=== PATIENT | female | born 1965 | race Caucasian/White ===

== ENCOUNTER 2018-12-22 10:03 | Inpatient (IN) | payer OTHER ==
[2018-12-22 10:47] VITALS: BMI 16.7
--- NOTE | 2018-12-22 12:10 | HP ---
CIWA Score Nausea/Vomitin Muscle Tremors: 2 Anxiety: 2 Agitation: 2 Paroxysmal Sweats: 1-Minimal Palms Moist Orientation: 0-Oriented Tacttile Disturbances: 1-Very Mild Itch/Numbness Auditory Disturbances: 1-Very Mild Visual Disturbances: 0-None Headache: 2-Mild CIWA-Ar Total Score: 13 - Admission Criteria OASAS Guidelines: Admission for Medically Managed Detox: Requires at least one of the followin. CIWA greater than 12 2. Seizures within the past 24 hours 3. Delirium tremens within the past 24 hours 4. Hallucinations within the past 24 hours 5. Acute intervention needed for co occurring medical disorder 6. Acute intervention needed for co occurring psychiatric disorder 7. Severe withdrawal that cannot be handled at a lower level of care (continued vomiting, continued diarrhea, abnormal vital signs) requiring intravenous medication and/or fluids 8. Admission ROS S - HPI Chief Complaint: i need help to stop drinking alcohol,cocaine,heroin abused,mmtp 100 mgs/day Allergies/Adverse Reactions: Allergies Allergy/AdvReac Type Severity Reaction Status Date / Time No Known Allergies Allergy Verified 12/22/18 10:33 History of Present Illness: this 53 years old female with alcohol dependence,cocaine dependence,heroin abused,mmtp 100 mgs/day,last medicated today last detox 2017 do not recall facility hiv since 01/31/92 non compliance weight loss hepatitis c treated asthma nicotine dependence 3 packs.requesting patch syncope alcohol related bipolar disorder ambulance with cane for 13 years for balance longest sobriety 2 years celio to go to rehab after detox - Ebola screening Have you traveled outside of the country in the last 21 days: No Have you had contact with anyone from an Ebola affected area: No Do you have a fever: No - Review of Systems Constitutional: Loss of Appetite, Malaise, Night Sweats, Changes in sleep, Unintentional Wgt. Loss EENT: reports: Nose Congestion Respiratory: reports: No Symptoms reported, Other (asthma) Cardiac: reports: No Symptoms Reported GI: reports: Diarrhea, Nausea, Poor Appetite, Indigestion : reports: No Symptoms Reported Musculoskeletal: reports: Back Pain, Muscle Pain Integumentary: reports: Dryness Neuro: reports: Headache, Tremors Endocrine: reports: No Symptoms Reported Hematology: reports: No Symptoms Reported, Other (hiv) Psychiatric: reports: No Sypmtoms Reported, Judgement Intact, Mood/Affect Appropiate, Orientated x3 (bipolar disorder) Other Systems: Reviewed and Negative Patient History - Patient Medical History Hx Anemia: Yes (chronic disease? ) Hx Asthma: Yes (Pt is on MDI) Hx Chronic Obstructive Pulmonary Disease (COPD): No Hx Cancer: No Hx Cardiac Disorders: No Hx Congestive Heart Failure: No Hx Hypertension: No Hx Hypercholesterolemia: No Hx Pacemaker: No HX Cerebrovascular Accident: No Hx Seizures: No Hx Dementia: No Hx Diabetes: No Hx Gastrointestinal Disorders: No Hx Liver Disease: No Hx Genitourinary Disorders: No Hx Sexually Transmitted Disorders: No Hx Renal Disease (ESRD): No Hx Thyroid Disease: No Hx Human Immunodeficiency Virus (HIV): Yes (since 01/31/92) Hx Hepatitis C: Yes (treated) Hx Depression: No Hx Suicide Attempt: No Hx Bipolar Disorder: Yes (on med) Hx Schizophrenia: No Other Medical History: no suicidal,no homicidal,amlance with cane for 13 years - Patient Surgical History Past Surgical History: Yes Other Surgical History: Bilateral inguinal hernia repairs Anesthesia Reaction: No - PPD History Previous Implant?: Yes Documented Results: Positive w/o proof Implanted On Prior R Admission?: No Date: 02/09/14 PPD to be Administered?: No - Reproductive History Patient is a Female of Child Bearing Age (11 -55 yrs old): Yes Last Menstrual Period: 01/29/14 Patient : No - Smoking Cessation Smoking history: Current every day smoker Have you smoked in the past 12 months: Yes Aproximately how many cigarettes per day: 60 Hx Chewing Tobacco Use: No Initiated information on smoking cessation: Yes 'Breaking Loose' booklet given: 12/22/18 - Substance & Tx. History Hx Alcohol Use: Yes Hx Substance Use: Yes Substance Use Type: Alcohol, Cocaine, Heroin Hx Substance Use Treatment: Yes (2018 unknown facility) - Substances abused Heroin Substance route: Injection Frequency: 3-6 times per week Amount used: 6-7 BAGS Age of first use: 9 Date of last use: 12/21/18 Alcohol Substance route: Oral Frequency: Daily Amount used: 2pints of vodka Age of first use: 8 Date of last use: 12/22/18 Cocaine Substance route: Inhalation Frequency: Daily Amount used: 60$ Age of first use: 9 Date of last use: 12/21/18 Family Disease History - Family Disease History Family Disease History: Diabetes: Father (alcohol), Other: Father Admission Physical Exam [facility] - Vital Signs Vital Signs: Vital Signs - 24 hr 12/22/18 10:35 Temperature 98.3 F Pulse Rate 71 Respiratory 16 Rate Blood Pressure 99/61 - Physical General Appearance: Yes: Moderate Distress, Tremorous, Irritable, Sweating, Anxious HEENTM: Yes: Normal ENT Inspection, SATISH, Pharynx Normal Respiratory: Yes: Within Normal Limits, Lungs Clear, Normal Breath Sounds Neck: Yes: Within Normal Limits, Supple, Trachea in good position Breast: Yes: Breast Exam Deferred Cardiology: Yes: Within Normal Limits, Regular Rhythm, Regular Rate, S1, S2 Abdominal: Yes: Within Normal Limits, Normal Bowel Sounds, Non Tender, Flat Genitourinary: Yes: Within Normal Limits Musculoskeletal: Yes: full range of Motion, Back pain, Muscle Pain Extremities: Yes: Tremors Neurological: Yes: director paid media II-XII NML intact, Fully Oriented, Alert, Motor Strength 5/5 Integumentary: Yes: Dry, Track [place] Lymphatic: Yes: Within Normal Limits - Diagnostic (1) Alcohol dependence with uncomplicated withdrawal Current Visit: Yes Status: Acute (2) Asthma Current Visit: No Status: Acute (3) Bipolar disorder Current Visit: No Status: Acute (4) Cocaine dependence Current Visit: No Status: Acute (5) HIV disease Current Visit: No Status: Acute (6) Hepatitis C Current Visit: No Status: Acute (7) Nicotine dependence Current Visit: No Status: Acute (8) Heroin abuse Current Visit: Yes Status: Acute (9) Weight loss Current Visit: Yes Status: Acute (10) Ambulates with cane Current Visit: Yes Status: Acute (11) Dehydration Current Visit: Yes Status: Acute (12) IVDU (intravenous drug user) Current Visit: Yes Status: Acute (13) Methadone maintenance therapy patient Current Visit: Yes Status: Acute Cleared for Admission [facility] - Detox or Rehab [facility] Level of Care: Medically Managed Detox Regimen/Protocol: Librium Breathalyzer - Breathalyzer Breathalyzer: 0 POC Urine test - Test device test lot number: [id number] Expiration date: 04/30/20 - Control test control: Yes - Result Urine Test Results: Negative - NO line present Urine Drug Screen - Test Device Lot number: [id number] Expiration date: 07/30/20 - Control Is test valid?: Yes - Results Drug screen NEGATIVE: No Urine drug screen results: SHADE-Cocaine, MTD-Methadone Inpatient Rehab Admission - Rehab Decision to Admit Inpatient rehab admission?: No
[2018-12-22] MEDS ORDERED: MAGNESIUM CITRATE 300 ML BOTTLE PO PRN (12:32)
[2018-12-22] MEDS ORDERED: ACETAMINOPHEN 325 MG TABLET (FP) PO PRN ×2 (12:32)
[2018-12-22] MEDS ORDERED: chlordiazePOXIDE HCL 10 MG CAPSULE PO PRN (12:32)
[2018-12-22] MEDS ORDERED: IBUPROFEN 400 MG TABLET (FP) PO PRN (12:32)
[2018-12-22] MEDS ORDERED: MAGNESIUM HYDROX 2400MG/30ML ORAL SUSPENSION 30 ML CUP PO PRN (12:32)
[2018-12-22] MEDS ORDERED: hydrOXYzine PAMOATE 25 MG CAPSULE (FP) PO PRN (12:32)
[2018-12-22] MEDS ORDERED: MELATONIN 5 MG TABLETS PO PRN (12:32)
[2018-12-22] MEDS ORDERED: METHOCARBAMOL 500 MG TABLET PO PRN (12:32)
[2018-12-22] MEDS ORDERED: BISMUTH SUBSALICYLATE 524 MG/30 ML UD PO PRN (12:32)
[2018-12-22] MEDS ORDERED: MENTHOL/PHENOL 1 EACH UD MM PRN (12:32)
[2018-12-22] MEDS ORDERED: ALBUTEROL SO4 8 GM HFA INHALER IH PRN (12:35)
[2018-12-22] MEDS: NICOTINE 21 MG/24 HOURS TOPICAL PATCH TD SCH (13:51)
[2018-12-22] MEDS: THIAMINE HCL 100 MG TABLET (FP) PO SCH (22:39)
[2018-12-22] MEDS: chlordiazePOXIDE HCL 25 MG CAPSULE PO SCH (22:39)
[2018-12-22 22:53] LABS: HEMOGLOBIN 14.3 GM/dL (10.7-15.3); MCH 33.3 pg (25.7-33.7); MEAN CELL VOLUME 98.1 fl (80-96); MEAN PLT VOLUME 8.7 fl (7.5-11.1); RBC 4.28 M/mm3 (3.60-5.2); RDW 13.7 % (11.6-15.6); WHITE BLOOD COUNT 3.1 K/mm3 (4.0-10.0)
[2018-12-22 23:15] LABS: ALBUMIN 3.4 g/dl (3.4-5.0); ALK PHOS 126 U/L (45-117); ANION GAP 2 MMOL/L (8-16); BILIRUBIN,TOTAL 0.6 mg/dL (0.2-1); BLOOD UREA NITROGEN 19 mg/dL (7-18); CALCIUM 8.9 mg/dL (8.5-10.1); CHLORIDE 102 mmol/L (98-107); CO2 33 mmol/L (21-32); CREATININE 0.8 mg/dL (0.55-1.3); GLUCOSE,RANDOM 85 mg/dL (74-106); POTASSIUM 4.2 mmol/L (3.5-5.1); SGOT/AST 28 U/L (15-37); SGPT/ALT 25 U/L (13-61); SODIUM 137 mmol/L (136-145); TOT PROT 8.9 g/dl (6.4-8.2)
[2018-12-22 23:26] LABS: PLATELET COUNT 274 K/MM3 (134-434)
[2018-12-23] MEDS ORDERED: METHADONE HCL 40 MG DISPERSABLE TABLET ONE (04:30)
[2018-12-23] MEDS ORDERED: METHADONE HCL 10 MG TABLET ONE (04:30)
[2018-12-23] MEDS: chlordiazePOXIDE HCL 25 MG CAPSULE PO SCH ×2 (05:45→12:36)
[2018-12-23] MEDS: METHADONE 80 MG, METHADONE 20 MG PO SCH (05:45)
[2018-12-23] MEDS ORDERED: METHADONE HCL 10 MG TABLET PO SCH (06:00)
[2018-12-23] MEDS: PRENATAL VITAMINS W/ FOLIC ACID TABLET (FP) PO SCH (10:34)
--- NOTE | 2018-12-23 10:42 | PN ---
S CIWA - CIWA Score Nausea/Vomitin-Mild Nausea/No Vomiting Muscle Tremors: 3 Anxiety: 2 Agitation: 2 Paroxysmal Sweats: 1-Minimal Palms Moist Orientation: 3-Disoriented Date>2 days Tacttile Disturbances: 0-None Auditory Disturbances: 0-None Visual Disturbances: 0-None Headache: 0-None Present CIWA-Ar Total Score: 12 B[facility] Progress Note (SOAP) Subjective: ambulating with cane methadone 100 mg po daily Objective: 12/23/18 10:42 Vital Signs Temperature 96 F L 12/23/18 09:18 Pulse Rate 72 12/23/18 09:18 Respiratory Rate 20 12/23/18 09:18 Blood Pressure 91/61 12/23/18 09:18 O2 Sat by Pulse Oximetry (%) Laboratory Last Values WBC 3.1 K/mm3 (4.0-10.0) L 12/22/18 12:00 RBC 4.28 M/mm3 (3.60-5.2) 12/22/18 12:00 Hgb 14.3 GM/dL (10.7-15.3) 12/22/18 12:00 Hct 42.0 % (32.4-45.2) D 12/22/18 12:00 MCV 98.1 fl (80-96) H 12/22/18 12:00 MCH 33.3 pg (25.7-33.7) 12/22/18 12:00 MCHC 34.0 g/dl (32.0-36.0) 12/22/18 12:00 RDW 13.7 % (11.6-15.6) 12/22/18 12:00 Plt Count 274 K/MM3 (134-434) D 12/22/18 12:00 MPV 8.7 fl (7.5-11.1) 12/22/18 12:00 Sodium 137 mmol/L (136-145) 12/22/18 12:00 Potassium 4.2 mmol/L (3.5-5.1) 12/22/18 12:00 Chloride 102 mmol/L (98-107) 12/22/18 12:00 Carbon Dioxide 33 mmol/L (21-32) H 12/22/18 12:00 Anion Gap 2 MMOL/L (8-16) L 12/22/18 12:00 BUN 19 mg/dL (7-18) H 12/22/18 12:00 Creatinine 0.8 mg/dL (0.55-1.3) 12/22/18 12:00 Creat Clearance w eGFR 75.03 (>60) 12/22/18 12:00 Random Glucose 85 mg/dL (74-106) 12/22/18 12:00 Calcium 8.9 mg/dL (8.5-10.1) 12/22/18 12:00 Total Bilirubin 0.6 mg/dL (0.2-1) 12/22/18 12:00 AST 28 U/L (15-37) 12/22/18 12:00 ALT 25 U/L (13-61) 12/22/18 12:00 Alkaline Phosphatase 126 U/L (45-117) H 12/22/18 12:00 Total Protein 8.9 g/dl (6.4-8.2) H 12/22/18 12:00 Albumin 3.4 g/dl (3.4-5.0) 12/22/18 12:00 RPR Titer Nonreactive (NONREACTIVE) 12/22/18 12:00 lab noted 12/23/18 10:45 ammonia level ordered Assessment: 12/23/18 10:45 alcohol withdrawal sx Plan: continue detox
[2018-12-23] MEDS: NICOTINE 21 MG/24 HOURS TOPICAL PATCH TD SCH (11:04)
[2018-12-23] MEDS: THIAMINE HCL 100 MG TABLET (FP) PO SCH (22:24)
[2018-12-23] MEDS: chlordiazePOXIDE 5 MG CAPSULE PO SCH (22:25)
[2018-12-24] MEDS ORDERED: METHADONE HCL 40 MG DISPERSABLE TABLET ONE (05:34)
[2018-12-24] MEDS ORDERED: METHADONE HCL 10 MG TABLET ONE (05:34)
[2018-12-24] MEDS: METHADONE 80 MG, METHADONE 20 MG PO SCH (05:35)
[2018-12-24] MEDS: chlordiazePOXIDE 5 MG CAPSULE PO SCH ×2 (07:05→13:10)
[2018-12-24] MEDS: NICOTINE 21 MG/24 HOURS TOPICAL PATCH TD SCH (10:47)
[2018-12-24] MEDS: PRENATAL VITAMINS W/ FOLIC ACID TABLET (FP) PO SCH (10:47)
--- NOTE | 2018-12-24 11:07 | PN ---
S CIWA - CIWA Score Nausea/Vomitin-No Nausea/No Vomiting Muscle Tremors: None Anxiety: 1-Mildly Anxious Agitation: 0-Normal Activity Paroxysmal Sweats: No Perspiration Orientation: 0-Oriented Tacttile Disturbances: 0-None Auditory Disturbances: 0-None Visual Disturbances: 0-None Headache: 0-None Present CIWA-Ar Total Score: 1 S Progress Note (SOAP) Subjective: Pt here for alcohol detox- pt states only taking librium prn, on methadone 100mg , pt tired/sleepy this morning O: Vital Signs - 24 hr 12/23/18 12/23/18 12/23/18 13:25 17:57 22:04 Temperature 97 F L 97.7 F 99.0 F Pulse Rate 76 85 83 Respiratory 18 18 18 Rate Blood Pressure 101/62 98/63 110/58 L 12/24/18 12/24/18 12/24/18 00:30 06:30 09:16 Temperature 98.2 F 96.4 F L Pulse Rate 71 78 Respiratory 18 18 18 Rate Blood Pressure 99/57 L 98/55 L Laboratory Tests 12/22/18 12/22/18 12/22/18 12:00 12:00 12:00 WBC 3.1 L RBC 4.28 Hgb 14.3 Hct 42.0 D MCV 98.1 H MCH 33.3 MCHC 34.0 RDW 13.7 Plt Count 274 D MPV 8.7 Sodium 137 Potassium 4.2 Chloride 102 Carbon Dioxide 33 H Anion Gap 2 L BUN 19 H Creatinine 0.8 Creat Clearance w eGFR 75.03 Random Glucose 85 Calcium 8.9 Total Bilirubin 0.6 AST 28 ALT 25 Alkaline Phosphatase 126 H Ammonia Total Protein 8.9 H Albumin 3.4 RPR Titer Nonreactive 12/24/18 06:45 WBC RBC Hgb Hct MCV MCH MCHC RDW Plt Count MPV Sodium Potassium Chloride Carbon Dioxide Anion Gap BUN Creatinine Creat Clearance w eGFR Random Glucose Calcium Total Bilirubin AST ALT Alkaline Phosphatase Ammonia 63.50 H Total Protein Albumin RPR Titer a/p: on MAT methadone 100mg/day continue librium detox protocol- prn librium as needed as pt is tired this morning
[2018-12-24] MEDS: MAG HYDROX/AL HYDROX/SIMETH 30 ML UNIT-DOSE CUP PO PRN ×2 (11:50→19:24)
[2018-12-24] MEDS: HYDROCORTISONE 2.5% TOPICAL CREAM 30 GM TUBE TP SCH ×2 (14:51→21:26)
[2018-12-24] MEDS ORDERED: chlordiazePOXIDE 5 MG CAPSULE PO PRN (21:00)
[2018-12-24] MEDS ORDERED: chlordiazePOXIDE HCL 10 MG CAPSULE PO PRN (21:00)
[2018-12-24] MEDS: LACTULOSE 20 GM/30 ML UDC (FOR ORAL USE ONLY) PO SCH (21:25)
[2018-12-24] MEDS: chlordiazePOXIDE HCL 10 MG CAPSULE PO SCH (21:25)
[2018-12-24] MEDS: THIAMINE HCL 100 MG TABLET (FP) PO SCH (21:26)
--- NOTE | 2018-12-25 02:29 | PN ---
[facility] Progress Note Note: Laboratory Last Values WBC 3.1 K/mm3 (4.0-10.0) L 12/22/18 12:00 RBC 4.28 M/mm3 (3.60-5.2) 12/22/18 12:00 Hgb 14.3 GM/dL (10.7-15.3) 12/22/18 12:00 Hct 42.0 % (32.4-45.2) D 12/22/18 12:00 MCV 98.1 fl (80-96) H 12/22/18 12:00 MCH 33.3 pg (25.7-33.7) 12/22/18 12:00 MCHC 34.0 g/dl (32.0-36.0) 12/22/18 12:00 RDW 13.7 % (11.6-15.6) 12/22/18 12:00 Plt Count 274 K/MM3 (134-434) D 12/22/18 12:00 MPV 8.7 fl (7.5-11.1) 12/22/18 12:00 Sodium 137 mmol/L (136-145) 12/22/18 12:00 Potassium 4.2 mmol/L (3.5-5.1) 12/22/18 12:00 Chloride 102 mmol/L (98-107) 12/22/18 12:00 Carbon Dioxide 33 mmol/L (21-32) H 12/22/18 12:00 Anion Gap 2 MMOL/L (8-16) L 12/22/18 12:00 BUN 19 mg/dL (7-18) H 12/22/18 12:00 Creatinine 0.8 mg/dL (0.55-1.3) 12/22/18 12:00 Creat Clearance w eGFR 75.03 (>60) 12/22/18 12:00 Random Glucose 85 mg/dL (74-106) 12/22/18 12:00 Calcium 8.9 mg/dL (8.5-10.1) 12/22/18 12:00 Total Bilirubin 0.6 mg/dL (0.2-1) 12/22/18 12:00 AST 28 U/L (15-37) 12/22/18 12:00 ALT 25 U/L (13-61) 12/22/18 12:00 Alkaline Phosphatase 126 U/L (45-117) H 12/22/18 12:00 Ammonia 63.50 umol/L (11-32) H 12/24/18 06:45 Total Protein 8.9 g/dl (6.4-8.2) H 12/22/18 12:00 Albumin 3.4 g/dl (3.4-5.0) 12/22/18 12:00 POC Urine HCG, Qual Negative 12/22/18 10:26 RPR Titer Nonreactive (NONREACTIVE) 12/22/18 12:00 Elevated serum ammonia level. Started on Lactulose
[2018-12-25] MEDS ORDERED: METHADONE HCL 10 MG TABLET ONE (04:49)
[2018-12-25] MEDS ORDERED: METHADONE HCL 40 MG DISPERSABLE TABLET ONE (04:49)
[2018-12-25] MEDS: METHADONE 80 MG, METHADONE 20 MG PO SCH (06:02)
[2018-12-25] MEDS: LACTULOSE 20 GM/30 ML UDC (FOR ORAL USE ONLY) PO SCH ×3 (06:03→22:35)
[2018-12-25] MEDS: chlordiazePOXIDE HCL 10 MG CAPSULE PO SCH ×4 (06:03→22:36)
[2018-12-25] MEDS ORDERED: COLLOIDAL OATMEAL 1 BAR EACH TP PRN (10:17)
[2018-12-25] MEDS: PRENATAL VITAMINS W/ FOLIC ACID TABLET (FP) PO SCH (11:15)
[2018-12-25] MEDS: AMMONIUM LACTATE 12% LOTION 225 GM BOTTLE TP SCH ×2 (11:15→22:34)
[2018-12-25] MEDS: HYDROCORTISONE 2.5% TOPICAL CREAM 30 GM TUBE TP SCH ×2 (11:15→22:33)
[2018-12-25] MEDS: NICOTINE 21 MG/24 HOURS TOPICAL PATCH TD SCH (11:16)
[2018-12-25] MEDS: MAG HYDROX/AL HYDROX/SIMETH 30 ML UNIT-DOSE CUP PO PRN (11:16)
--- NOTE | 2018-12-25 16:23 | PN ---
S CIWA - CIWA Score Nausea/Vomitin-No Nausea/No Vomiting Muscle Tremors: None Anxiety: 3 Agitation: 1-Slight > Activity Paroxysmal Sweats: No Perspiration Orientation: 0-Oriented Tacttile Disturbances: 2-Mild Itch/Numbness/Burn Auditory Disturbances: 3-Moderate Harsh/Frighten Visual Disturbances: 0-None Headache: 0-None Present CIWA-Ar Total Score: 9 BHS Progress Note (SOAP) Subjective: Anxious, Body Aches.. Objective: PATIENT A & O X 2 (UNCERTAIN ABOUT CURRENT DAY / DATE). PATIENT OBSERVED AMBULATING ON UNIT UNASSISTED. IN NO ACUTE DISTRESS. 12/25/18 16:24 Vital Signs Temperature 98.4 F 12/25/18 14:20 Pulse Rate 66 12/25/18 14:20 Respiratory Rate 16 12/25/18 14:20 Blood Pressure 98/66 12/25/18 14:20 O2 Sat by Pulse Oximetry (%) Laboratory Tests 12/22/18 12/22/18 12/22/18 10:26 12:00 12:00 WBC 3.1 L RBC 4.28 Hgb 14.3 Hct 42.0 D MCV 98.1 H MCH 33.3 MCHC 34.0 RDW 13.7 Plt Count 274 D MPV 8.7 Sodium 137 Potassium 4.2 Chloride 102 Carbon Dioxide 33 H Anion Gap 2 L BUN 19 H Creatinine 0.8 Creat Clearance w eGFR 75.03 Random Glucose 85 Calcium 8.9 Total Bilirubin 0.6 AST 28 ALT 25 Alkaline Phosphatase 126 H Ammonia Total Protein 8.9 H Albumin 3.4 POC Urine HCG, Qual Negative RPR Titer 12/22/18 12/24/18 12:00 06:45 WBC RBC Hgb Hct MCV MCH MCHC RDW Plt Count MPV Sodium Potassium Chloride Carbon Dioxide Anion Gap BUN Creatinine Creat Clearance w eGFR Random Glucose Calcium Total Bilirubin AST ALT Alkaline Phosphatase Ammonia 63.50 H Total Protein Albumin POC Urine HCG, Qual RPR Titer Nonreactive LABS NOTED. Assessment: 12/25/18 16:24 WITHDRAWAL SYMPTOMS. HYPERAMMONEMIA. LEUKOPENIA. 12/25/18 16:25 Plan: CONTINUE DETOX. INCREASE DAILY PO FLUID / WATER INTAKE. CONTINUE LACTULOSE PO.
[2018-12-25] MEDS: THIAMINE HCL 100 MG TABLET (FP) PO SCH (22:34)
[2018-12-26] MEDS ORDERED: METHADONE HCL 10 MG TABLET ONE (04:39)
[2018-12-26] MEDS ORDERED: METHADONE HCL 40 MG DISPERSABLE TABLET ONE (04:39)
[2018-12-26] MEDS: LACTULOSE 20 GM/30 ML UDC (FOR ORAL USE ONLY) PO SCH ×2 (05:27→14:49)
[2018-12-26] MEDS: METHADONE 80 MG, METHADONE 20 MG PO SCH (05:27)
[2018-12-26] MEDS: NICOTINE 21 MG/24 HOURS TOPICAL PATCH TD SCH (10:36)
[2018-12-26] MEDS: PRENATAL VITAMINS W/ FOLIC ACID TABLET (FP) PO SCH (10:36)
[2018-12-26] MEDS: AMMONIUM LACTATE 12% LOTION 225 GM BOTTLE TP SCH (10:37)
[2018-12-26] MEDS: HYDROCORTISONE 2.5% TOPICAL CREAM 30 GM TUBE TP SCH (10:39)
--- NOTE | 2018-12-26 12:54 | DS ---
[facility] Detox Discharge Summary Admission Date: 12/22/18 Discharge Date: 12/26/18 - History Present History: Alcohol Dependence Additional Comments: 53 years old female admitted on 12/22/18 for alcohol withdrawal stabilization completed alcohol detox regimen aftercare as per counselor arrangement patient has ammonia serum 62 treated with lactulose patient is alert no acute distress report has callus on both feet tender when walking recommend spring former hand consultation reporting that has hiv treated with genvoya last 30 days supply 12/16/18 Pertinent Past History: patient agrees to return to methadone program and infectious disease specialist for hiv medical and mental issues patient has elevated ammonia level patient will return to methadone program for with list of medication and lab report encourage supervisor picking crew lactulose from phrarmacy - Physical Exam Results Vital Signs: Vital Signs Temperature 97.6 F 12/26/18 09:35 Pulse Rate 76 12/26/18 09:35 Respiratory Rate 18 12/26/18 09:35 Blood Pressure 96/61 12/26/18 09:35 O2 Sat by Pulse Oximetry (%) Pertinent Admission Physical Exam Findings: alcohol withdrawal sx Laboratory Last Values WBC 3.1 K/mm3 (4.0-10.0) L 12/22/18 12:00 RBC 4.28 M/mm3 (3.60-5.2) 12/22/18 12:00 Hgb 14.3 GM/dL (10.7-15.3) 12/22/18 12:00 Hct 42.0 % (32.4-45.2) D 12/22/18 12:00 MCV 98.1 fl (80-96) H 12/22/18 12:00 MCH 33.3 pg (25.7-33.7) 12/22/18 12:00 MCHC 34.0 g/dl (32.0-36.0) 12/22/18 12:00 RDW 13.7 % (11.6-15.6) 12/22/18 12:00 Plt Count 274 K/MM3 (134-434) D 12/22/18 12:00 MPV 8.7 fl (7.5-11.1) 12/22/18 12:00 Sodium 137 mmol/L (136-145) 12/22/18 12:00 Potassium 4.2 mmol/L (3.5-5.1) 12/22/18 12:00 Chloride 102 mmol/L (98-107) 12/22/18 12:00 Carbon Dioxide 33 mmol/L (21-32) H 12/22/18 12:00 Anion Gap 2 MMOL/L (8-16) L 12/22/18 12:00 BUN 19 mg/dL (7-18) H 12/22/18 12:00 Creatinine 0.8 mg/dL (0.55-1.3) 12/22/18 12:00 Creat Clearance w eGFR 75.03 (>60) 12/22/18 12:00 Random Glucose 85 mg/dL (74-106) 12/22/18 12:00 Calcium 8.9 mg/dL (8.5-10.1) 12/22/18 12:00 Total Bilirubin 0.6 mg/dL (0.2-1) 12/22/18 12:00 AST 28 U/L (15-37) 12/22/18 12:00 ALT 25 U/L (13-61) 12/22/18 12:00 Alkaline Phosphatase 126 U/L (45-117) H 12/22/18 12:00 Ammonia 63.50 umol/L (11-32) H 12/24/18 06:45 Total Protein 8.9 g/dl (6.4-8.2) H 12/22/18 12:00 Albumin 3.4 g/dl (3.4-5.0) 12/22/18 12:00 POC Urine HCG, Qual Negative 12/22/18 10:26 RPR Titer Nonreactive (NONREACTIVE) 12/22/18 12:00 lab noted bring in lab report to methadone program and infectious disease specialist supervisor picking crew lactulose from the pharmacy - Treatment Hospital Course: Detox Protocol Followed, Detoxed Safely, Responded well, Discharged Condition Good, Rehab Referral Accepted Patient has Accepted a Rehab Referral to: methadone program and infectious disease specailist - Medication Discharge Medications: Ambulatory Orders Albuterol Sulfate Inhaler - [Ventolin HFA Inhaler -] 2 inh PO Q4H PRN #1 inh Elviteg/Cob/Emtri/Tenof Alafen [Genvoya (Non-Formulary)] 1 each PO DAILY - Diagnosis (1) Alcohol dependence with uncomplicated withdrawal Current Visit: Yes Status: Acute (2) Ambulates with cane Current Visit: Yes Status: Chronic (3) Methadone maintenance therapy patient Current Visit: Yes Status: Chronic (4) Weight loss Current Visit: Yes Status: Acute (5) Asthma Current Visit: Yes Status: Chronic Qualifiers: Asthma severity: mild Asthma persistence: intermittent Asthma complication type: with status asthmaticus Qualified Code(s): J45.22 - Mild intermittent asthma with status asthmaticus (6) HIV disease Current Visit: Yes Status: Chronic (7) Hepatitis C Current Visit: Yes Status: Chronic Qualifiers: Viral hepatitis chronicity: carrier Qualified Code(s): B18.2 - Chronic viral hepatitis C (8) Nicotine dependence Current Visit: Yes Status: Acute Qualifiers: Nicotine product type: cigarettes Substance use status: in withdrawal Qualified Code(s): F17.213 - Nicotine dependence, cigarettes, with withdrawal - AMA Did Patient Leave Against Medical Advice: No
[2018-12-26 15:01] VITALS: BP 101/61; PULSE 83; TEMP 97.5
== END 2018-12-26 15:00 | disposition home or self-care (01) | DRG 773 ==
LOC: YASAS 10:03 → Y3N 12:38
PROVIDERS: ADMIT Surgery; ATTEND Surgery
PROC: HZ2ZZZZ Detoxification Services for Substance Abuse Treatment (ICD-10-PCS; principal; 2018-12-22)
DX: F10.230 Alcohol dependence with withdrawal, uncomplicated (principal); F14.20 Cocaine dependence, uncomplicated; F11.20 Opioid dependence, uncomplicated; F17.213 Nicotine dependence, cigarettes, with withdrawal; F31.9 Bipolar disorder, unspecified; B20 Human immunodeficiency virus [HIV] disease; J45.22 Mild intermittent asthma with status asthmaticus; E86.0 Dehydration; B18.2 Chronic viral hepatitis C; E72.20 Disorder of urea cycle metabolism, unspecified; R63.4 Abnormal weight loss; Z68.1 Body mass index [BMI] 19.9 or less, adult; R26.89 Other abnormalities of gait and mobility; Z99.89 Dependence on other enabling machines and devices
CPT/HCPCS: 36415; 71046-TC-FY; 80053; 81025; 82140; 85027; 86593

== ENCOUNTER 2018-12-26 14:57 | Inpatient (IN) | payer OTHER ==
--- NOTE | 2018-12-26 14:53 | HP ---
[facility] Rehab Assess/Revision - Admission History Admitted to Rehab from: [facility] Date of Admission to Rehab: 12/26/18 - Findings Detox History & Physical reviewed: Yes Concur with findings: Yes Comments/Additional Findings: transferred from detox to rehab admission as per protocol Inpatient Rehab Admission - Rehab Decision to Admit Inpatient rehab admission?: Yes - Initial Determination Are CD services needed?: Yes Free of communicable disease: Yes Not in need of hospitalization: Yes - Rehab Admission Criteria Previous failed treatment: Yes Poor recovery environment: Yes Comorbidities: Yes Lacks judgement: No Patient is meeting Inpatient Rehab admission criteria:: Yes
[~2018-12-26 14:57] MED LIST: ACETAMINOPHEN 325 MG TABLET (FP) PO PRN; ALBUTEROL SO4 8 GM HFA INHALER IH PRN; LOPERAMIDE HCL 2 MG CAPSULE PO PRN; MAG HYDROX/AL HYDROX/SIMETH 30 ML UNIT-DOSE CUP PO PRN; MAGNESIUM CITRATE 300 ML BOTTLE PO PRN; MAGNESIUM HYDROX 2400MG/30ML ORAL SUSPENSION 30 ML CUP PO PRN; MENTHOL/PHENOL 1 EACH UD MM PRN; NICOTINE POLACRILEX 2 MG GUM BC PRN; P-EPHED 60MG/TRIPROLIDI 2.5MG TABLET PO PRN; guaiFENesin 200 MG/10 ML 10 ML UNIT-DOSE CUPS PO PRN
[2018-12-26] MEDS: THIAMINE HCL 100 MG TABLET (FP) PO SCH (21:40)
[2018-12-26] MEDS: LACTULOSE 20 GM/30 ML UDC (FOR ORAL USE ONLY) PO SCH (21:40)
[2018-12-26] MEDS ORDERED: MELATONIN 5 MG TABLETS PO PRN (22:00)
[2018-12-27] MEDS ORDERED: METHADONE HCL 10 MG TABLET PO SCH (06:00)
[2018-12-27] MEDS ORDERED: METHADONE HCL 10 MG TABLET ONE (06:09)
[2018-12-27] MEDS ORDERED: METHADONE HCL 40 MG DISPERSABLE TABLET ONE (06:10)
[2018-12-27] MEDS: LACTULOSE 20 GM/30 ML UDC (FOR ORAL USE ONLY) PO SCH ×2 (07:01→13:50)
[2018-12-27] MEDS: METHADONE 80 MG, METHADONE 20 MG PO SCH (07:01)
[2018-12-27] MEDS ORDERED: PT OWN MED DRAWER 7, Y5N ONE ×2 (07:09→16:04)
[2018-12-27] MEDS: PRENATAL VITAMINS W/ FOLIC ACID TABLET (FP) PO SCH (09:38)
[2018-12-27] MEDS ORDERED: COLLOIDAL OATMEAL 1 BAR EACH TP PRN (13:23)
--- NOTE | 2018-12-27 14:21 | PN ---
[facility] Progress Note Note: Patient c/o dry itching patch of skin on both sides of face. States she applied lotion on face while in detox and now skin itches. Patient denies any known allergies and/or changes in diet. Also requesting to resume Genvoya which was confirmed in external hx with last prescription filled 12/21/18. Vital Signs Temperature 97.9 F 12/27/18 07:16 Pulse Rate 80 12/27/18 07:16 Respiratory Rate 18 12/27/18 07:16 Blood Pressure 122/68 12/27/18 07:16 O2 Sat by Pulse Oximetry (%) Laboratory Tests 12/27/18 08:45 Ammonia 24.50 PE: alert and oriented x 3 skin warm and dry, +dry patch noted on side of face (temporal area), mild redness. No lesions present car s1s2 resp cta bl gi soft, bs+, nt ext full rom, amb ad pearl A/P: dryness of skin/pruritis will start hydrocortisone 0.5% ointment bid x 7 days continue to monitor clinically
[2018-12-27] MEDS: HYDROCORTISONE 0.5% TOPICAL OINTMENT TUBE TP SCH (22:01)
[2018-12-27] MEDS: THIAMINE HCL 100 MG TABLET (FP) PO SCH (22:01)
[2018-12-28] MEDS ORDERED: METHADONE HCL 40 MG DISPERSABLE TABLET ONE (04:13)
[2018-12-28] MEDS ORDERED: METHADONE HCL 10 MG TABLET ONE (04:13)
[2018-12-28] MEDS: METHADONE 80 MG, METHADONE 20 MG PO SCH (06:21)
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
[2018-12-28] MEDS: HYDROCORTISONE 0.5% TOPICAL OINTMENT TUBE TP SCH (10:50)
[2018-12-28] MEDS: ELVITEG/COB/EMTRI/TENOF (GENVOYA) TABLET (NF) PO SCH (10:50)
[2018-12-28] MEDS: PRENATAL VITAMINS W/ FOLIC ACID TABLET (FP) PO SCH (10:50)
--- NOTE | 2018-12-28 13:46 | PN ---
S Progress Note Note: PT C/O SKIN DISCOLORATION ON LEFT SIDE OF FACE AND REPORTS SHE DOES NOT KNOW WHAT HAPPENED. REPORTS IT IS PAINFUL. PT REPORTS SHE BROUGHT A LOTION FROM HOME WHICH SHE USED WHILE IN DETOX AFTER WHICH SHE HAD A BURNING REACTION ON HER FACE. REPORTS THE LOTION IS IN HER PROPERTY IN SECURITY. PT IS REQUESTING A LOTION TO APPLY TO THE AREA STATING THAT WHAT SHE IS USING NOW DOES NOT WORK. PT STARTED HYDROCORTISONE CREAM 0.5% OINTMENT YESTERDAY FOR SAME COMPLAINT BUT DECLINING TO USE IT NOW.. Vital Signs 12/28/18 06:44 Temperature 97.9 F Pulse Rate 74 Respiratory 18 Rate Blood Pressure 97/63 Laboratory Tests 12/27/18 08:45 Ammonia 24.50 FACE:LEFT SIDE OF FACE ON LATERAL ASPECT OF LEFT EYE AND LEFT FOREHEAD WITH FRICTION RUB, BURN-LIKE DISCOLORATION OF SKIN WITH CRACKS. PLAN:D/C HYDROCORTISONE 0.5% OINTMENT APPLY BACITRACIN OINTMENT APPLY DIRECTED.
[2018-12-28] MEDS: BACITRACIN 0.9 GM PACKET TP SCH ×2 (15:56→21:32)
[2018-12-28] MEDS: THIAMINE HCL 100 MG TABLET (FP) PO SCH (21:32)
[2018-12-28] MEDS ORDERED: MELATONIN 5 MG TABLETS PO PRN (22:00)
[2018-12-29] MEDS ORDERED: METHADONE HCL 10 MG TABLET ONE (03:21)
[2018-12-29] MEDS ORDERED: METHADONE HCL 40 MG DISPERSABLE TABLET ONE (03:22)
[2018-12-29] MEDS: METHADONE 80 MG, METHADONE 20 MG PO SCH (06:40)
[2018-12-29] MEDS ORDERED: PT OWN MED DRAWER 7, Y5N ONE (09:01)
[2018-12-29] MEDS: BACITRACIN 0.9 GM PACKET TP SCH ×2 (10:49→21:50)
[2018-12-29] MEDS: PRENATAL VITAMINS W/ FOLIC ACID TABLET (FP) PO SCH (10:49)
[2018-12-29] MEDS: ELVITEG/COB/EMTRI/TENOF (GENVOYA) TABLET (NF) PO SCH (10:50)
[2018-12-29] MEDS: THIAMINE HCL 100 MG TABLET (FP) PO SCH (21:50)
[2018-12-30] MEDS ORDERED: METHADONE HCL 10 MG TABLET ONE (03:22)
[2018-12-30] MEDS ORDERED: METHADONE HCL 40 MG DISPERSABLE TABLET ONE (03:23)
[2018-12-30] MEDS: METHADONE 80 MG, METHADONE 20 MG PO SCH (06:47)
[2018-12-30] MEDS: BACITRACIN 0.9 GM PACKET TP SCH ×2 (10:29→21:13)
[2018-12-30] MEDS: PRENATAL VITAMINS W/ FOLIC ACID TABLET (FP) PO SCH (10:29)
[2018-12-30] MEDS: ELVITEG/COB/EMTRI/TENOF (GENVOYA) TABLET (NF) PO SCH (10:30)
[2018-12-30] MEDS: NICOTINE 14 MG/24 HOURS TOPICAL PATCH TD PRN (12:26)
[2018-12-30] MEDS: THIAMINE HCL 100 MG TABLET (FP) PO SCH (21:12)
[2018-12-31] MEDS ORDERED: METHADONE HCL 40 MG DISPERSABLE TABLET ONE (03:10)
[2018-12-31] MEDS ORDERED: METHADONE HCL 10 MG TABLET ONE (03:10)
[2018-12-31] MEDS: METHADONE 80 MG, METHADONE 20 MG PO SCH (06:34)
[2018-12-31] MEDS: NICOTINE 14 MG/24 HOURS TOPICAL PATCH TD PRN (10:43)
[2018-12-31] MEDS: ELVITEG/COB/EMTRI/TENOF (GENVOYA) TABLET (NF) PO SCH (10:43)
[2018-12-31] MEDS: PRENATAL VITAMINS W/ FOLIC ACID TABLET (FP) PO SCH (10:43)
[2018-12-31] MEDS: BACITRACIN 0.9 GM PACKET TP SCH ×2 (10:43→21:30)
[2018-12-31] MEDS: IBUPROFEN 400 MG TABLET (FP) PO PRN (18:49)
[2018-12-31] MEDS: THIAMINE HCL 100 MG TABLET (FP) PO SCH (21:30)
[2018-12-31] MEDS ORDERED: PT OWN MED DRAWER 7, Y5N ONE (23:05)
[2019-01-01] MEDS ORDERED: METHADONE HCL 10 MG TABLET ONE (03:15)
[2019-01-01] MEDS ORDERED: METHADONE HCL 40 MG DISPERSABLE TABLET ONE (03:15)
[2019-01-01] MEDS: METHADONE 80 MG, METHADONE 20 MG PO SCH (06:36)
[2019-01-01] MEDS ORDERED: PT OWN MED DRAWER 7, Y5N ONE (08:47)
[2019-01-01] MEDS: ELVITEG/COB/EMTRI/TENOF (GENVOYA) TABLET (NF) PO SCH (10:48)
[2019-01-01] MEDS: PRENATAL VITAMINS W/ FOLIC ACID TABLET (FP) PO SCH (10:48)
[2019-01-01] MEDS: BACITRACIN 0.9 GM PACKET TP SCH ×2 (10:48→21:31)
[2019-01-01] MEDS: IBUPROFEN 400 MG TABLET (FP) PO PRN (10:49)
[2019-01-01] MEDS: THIAMINE HCL 100 MG TABLET (FP) PO SCH (21:31)
[2019-01-01] MEDS: CYCLOBENZAPRINE HCL 5 MG TABLET PO PRN (22:19)
[2019-01-02] MEDS ORDERED: METHADONE HCL 40 MG DISPERSABLE TABLET ONE (02:48)
[2019-01-02] MEDS ORDERED: METHADONE HCL 10 MG TABLET ONE (02:48)
[2019-01-02] MEDS: METHADONE 80 MG, METHADONE 20 MG PO SCH (06:54)
[2019-01-02 07:18] VITALS: BP 92/53; PULSE 78; TEMP 98.3
[2019-01-02] MEDS ORDERED: PT OWN MED DRAWER 7, Y5N ONE (08:41)
[2019-01-02] MEDS: BACITRACIN 0.9 GM PACKET TP SCH (10:43)
[2019-01-02] MEDS: PRENATAL VITAMINS W/ FOLIC ACID TABLET (FP) PO SCH (10:43)
[2019-01-02] MEDS: ELVITEG/COB/EMTRI/TENOF (GENVOYA) TABLET (NF) PO SCH (10:44)
[2019-01-02] MEDS: CYCLOBENZAPRINE HCL 5 MG TABLET PO PRN (13:53)
[2019-01-02] MEDS: NICOTINE 14 MG/24 HOURS TOPICAL PATCH TD PRN (13:54)
--- NOTE | 2019-01-02 17:52 | DS ---
[facility] Detox Discharge Summary Admission Date: 12/26/18 Discharge Date: 01/02/19 - History Present History: Alcohol Dependence, Cocaine Dependence, MMTP - Physical Exam Results Vital Signs: Vital Signs Temperature 98.3 F 01/02/19 07:18 Pulse Rate 78 01/02/19 07:18 Respiratory Rate 16 01/02/19 07:18 Blood Pressure 92/53 L 01/02/19 07:18 O2 Sat by Pulse Oximetry (%) Pertinent Admission Physical Exam Findings: Laboratory Last Values Ammonia 24.50 umol/L (11-32) 12/27/18 08:45 - Medication Discharge Medications: Ambulatory Orders Albuterol Sulfate Inhaler - [Ventolin HFA Inhaler -] 2 inh PO Q4H PRN #1 inh 01/16 Elviteg/Cob/Emtri/Tenof Alafen [Genvoya (Non-Formulary)] 1 each PO DAILY 30 Days #30 tablet 01/02/19 - Diagnosis (1) Alcohol dependence Current Visit: Yes Status: Chronic (2) Cocaine dependence Current Visit: Yes Status: Chronic (3) Methadone maintenance therapy patient Current Visit: Yes Status: Chronic (4) Heroin abuse Current Visit: No Status: Acute (5) Nicotine dependence Current Visit: Yes Status: Chronic Qualifiers: Nicotine product type: cigarettes Substance use status: in withdrawal Qualified Code(s): F17.213 - Nicotine dependence, cigarettes, with withdrawal (6) Weight loss Current Visit: No Status: Acute (7) Ambulates with cane Current Visit: No Status: Chronic (8) Asthma Current Visit: Yes Status: Chronic Qualifiers: Asthma severity: mild Asthma persistence: intermittent Asthma complication type: with status asthmaticus Qualified Code(s): J45.22 - Mild intermittent asthma with status asthmaticus (9) HIV disease Current Visit: Yes Status: Chronic (10) Hepatitis C Current Visit: Yes Status: Chronic Qualifiers: Viral hepatitis chronicity: carrier Qualified Code(s): B18.2 - Chronic viral hepatitis C - AMA Did Patient Leave Against Medical Advice: Yes (Medication refill sent to the pharmacy. )
--- NOTE | 2019-01-03 11:26 | PN ---
S Progress Note Note: PT COMPLETE DETOX ON 12/26/18 AND REFERRED TO REHAB BUT PT SIGNED OUT AMA ON 01/02 WHILE IN REHAB.
== END 2019-01-02 16:55 | disposition left against medical advice (07) | DRG 770 ==
LOC: YASAS 14:57 → Y3E 14:59
PROVIDERS: ADMIT Neuromusculoskeletal Medicine & OMM; ATTEND Neuromusculoskeletal Medicine & OMM
PROC: HZ2ZZZZ Detoxification Services for Substance Abuse Treatment (ICD-10-PCS; principal; 2018-12-26)
DX: F10.20 Alcohol dependence, uncomplicated (principal); F14.20 Cocaine dependence, uncomplicated; F11.20 Opioid dependence, uncomplicated; F17.210 Nicotine dependence, cigarettes, uncomplicated; F19.24 Other psychoactive substance dependence with psychoactive substance-induced mood disorder; F19.282 Other psychoactive substance dependence with psychoactive substance-induced sleep disorder; J45.22 Mild intermittent asthma with status asthmaticus; L85.3 Xerosis cutis; B18.2 Chronic viral hepatitis C; R26.89 Other abnormalities of gait and mobility; Z99.89 Dependence on other enabling machines and devices
CPT/HCPCS: 82140